=== PATIENT | female | born 1940 | race Caucasian/White ===

== ENCOUNTER 2019-05-17 07:59 | Day surgery (SDC) | payer OTHER | END 2019-05-17 10:35 | disposition home or self-care (01) | LOC: FASU-ENDO 07:59 ==

== ENCOUNTER 2019-07-06 12:24 | Inpatient (IN) | payer OTHER ==
--- NOTE | 2019-06-14 12:06 | HP ---
DATE OF ADMISSION: 07/07/2019 DATE OF SURGERY: 07/07/2019 BRIEF HISTORY: This is a 79-year-old female who had her first colonoscopy by Dr. Hurst on May 20, 2019. At that time, she had 3 discrete findings: A 3-cm broad based stone polyp at the level of the ileocecal valve (almost directly across from the ileocecal valve) that could not be removed endoscopically, and biopsies were taken. Pathology of this finding is polypoid mucosa vascular congestion, no acute findings of carcinoma or adenoma. She had another finding in the distal right colon that was completely removed and that was consistent with tubular adenoma. She had a 3rd polyp in the distal transverse colon, and underwent a complete removal as well by polypectomy, and that site was tattooed at the time of colonoscopy. Again, that pathology is consistent with tubular adenoma, no carcinoma identified. Patient has no complaints of abdominal pain, nausea, or vomiting. No history of weight loss. She does have a family history of cancer (her father at age 68). PAST MEDICAL HISTORY: She has no coronary artery disease, hypertension, or diabetes. PAST SURGICAL HISTORY: None. Patient has had a section in the past. MEDICATION: Atenolol, simvastatin. ALLERGIES: None. SOCIAL HISTORY: The patient does not smoke nor does she drink. No history of drug use. PHYSICAL EXAMINATION: Abdomen: The abdomen is soft, nontender, nondistended. She has a lower midline scar from the umbilicus down that is reasonably healed. The abdomen is not extremely obese, but the patient is obese. IMPRESSION/PLAN: Colonic tumor: This is a 79-year-old female with a growth at the level of the ileocecal valve consistent with being a polyp. It is broad based and unable to be removed endoscopically. Patient is here today for a right colectomy for surgical removal of this endoscopic finding. Incidentally, she had 2 polyps removed, 1 in the distal right colon and 1 in the distal transverse colon that are both consistent with tubular adenomas, no carcinoma. The distal transverse colon polyp was tattooed. The patient, her daughter and myself had a long conversation regarding the pros and cons of various surgical approaches such as laparoscopic versus open, and given her previous surgical history and her body habitus, I think she is best served in an open fashion. Patient will be scheduled for an open right colectomy. The indications, alternatives and complications of the procedure discussed at length, and questions have been answered. Will plan to obtain written consent for the procedure on the day of surgery. Francia VALVERDE [id number] cc: cc: Panchito Hurst M.D.
[2019-07-06] MEDS ORDERED: PEG/ELECTROLYTES (NULYTELY) 4,000 ML BOTTLE PO ONE (13:30)
[2019-07-06 14:09] VITALS: BMI 37.5
[2019-07-06] MEDS ORDERED: ERTAPENEM SODIUM 1 GM in SODIUM CHLORIDE 50 ML IVPB ONE (17:00)
[2019-07-06] MEDS: ATENOLOL 50 MG TABLET (FP) PO SCH (21:41)
[2019-07-07] MEDS ORDERED: MIDAZOLAM HCL 2 MG/2 ML SINGLE DOSE VIAL ONE (10:10)
[2019-07-07] MEDS ORDERED: DEXAMETHASONE SOD PHOSPHATE/PF 10 MG/ML SDV ONE (10:10)
[2019-07-07] MEDS ORDERED: ROPIVACAINE HCL 0.5% 30ML VIAL ONE (10:10)
[2019-07-07] MEDS: LACTATED RINGERS SOLUTION 1,000 ML IV SCH ×3 (10:48→19:17)
[2019-07-07] MEDS ORDERED: PROPOFOL 20 ML ONE ×2 (11:59→12:29)
[2019-07-07] MEDS ORDERED: ONDANSETRON 4 MG/2 ML VIAL ONE ×3 (11:59→14:19)
[2019-07-07] MEDS ORDERED: ROCURONIUM BROMIDE 50 MG/5 ML SYRINGE ONE (11:59)
[2019-07-07] MEDS ORDERED: DEXAMETHASONE SOD PHOSPHATE 4 MG/1 ML VIAL ONE ×2 (11:59→12:25)
[2019-07-07] MEDS ORDERED: fentaNYL CITRATE 250 MCG/5 ML VIAL ONE (11:59)
[2019-07-07] MEDS ORDERED: LIDOCAINE HCL 2% JELLY (5 ML/TUBE) ONE (11:59)
[2019-07-07] MEDS ORDERED: GLYCOPYRROLATE 0.2 MG/1 ML VIAL ONE (13:31)
[2019-07-07] MEDS ORDERED: NEOSTIGMINE METHYLSULFATE 0.5 MG/ML - 10 ML MDV ONE (13:32)
[2019-07-07] MEDS ORDERED: ACETAMINOPHEN 325 MG TABLET (FP) PO PRN (13:48)
[2019-07-07] MEDS ORDERED: oxyCODONE HCL 5 MG TABLET PO PRN (13:48)
[2019-07-07] MEDS ORDERED: ONDANSETRON 4 MG/2 ML VIAL IVPUSH PRN (13:48)
--- NOTE | 2019-07-07 19:53 | OP ---
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 PROCEDURE: Extended right colectomy, omental patch, peritoneal lavage. SURGEON: Tanner Mccollum MD SALVAGE MACHINE OPERATOR: Isai Tilley DO ANESTHESIA: Misael Bucio MD (general). ESTIMATED BLOOD LOSS: Minimal. SPECIMEN: Right colon. INDICATIONS FOR PROCEDURE: This is a 79-year-old female who had a colonoscopy by Dr. Hurst in May 2019. She was noted to have 3 discreet findings at that time, a broad-based tumor at the ileocecal valve which could not be completely removed, a polyp in the ascending colon, and another 1 in the mid transverse colon. The third polyp was tattooed. The other 2 polyps were completely removed. She is here today for a right colectomy. Patient identified and appropriately positioned on the operating room table, after placement of general anesthesia, the abdomen prepped and draped in usual sterile fashion with ChloraPrep. A midline incision was made, deepened through the subcutaneous tissue. This was extended into a previous operative scar. The fascia of the midline divided sharply. The peritoneum incised. Under direct vision, the abdomen entered. There were adhesions of omentum and small bowel to the anterior abdominal wall from her previous surgery. These adhesions were taken down with blunt dissection as needed. The right colon identified. There was also the tattooed area in the transverse colon identified as well. The actual colectomy was designed for the finding in the right colon. However, the blue spot was in the proximal and mid transverse colon, and therefore, an extended right hemicolectomy would encompass this. Therefore, I performed an extended right hemicolectomy. The attachment of the right colon to the gutter was sharply divided with the cautery. The right colon mobilized into the operative field. The hepatic flexure was taken down with LigaSure device. Four wells placed prior to complete division. The gastrocolic ligament was then divided in a fusion plane done with the cautery, and the mesentery of the transverse colon identified. The proximal and distal lines of resection were subsequently then chosen. The proximal line of resection was chosen 6 inches from the ileocecal valve, and the distal line of resection was chosen approximately 3 inches beyond the spot. The ileum was anastomosed to the remainder of the transverse colon in a functional [id number]-[id number] fashion with a CANDICE 80, 3.8-mm stapler. The enterotomy closed with a TA 60, 3.5-mm stapler. The mesentery was then subsequently taken with LigaSure device. Four wells placed prior to complete division on all named vessels. The middle colic was taken near the duodenum and the right colic was taken in similar fashion and the ileocolic pedicle taken near the base. This mass was subsequently handed off. The surgeon and physiotherapist's assistant changed gloves at this point. Prior to dividing the colon and making the enterotomies for the anastomosis, the area was draped off with green towels, followed by laparotomy pads. Once the specimen was removed and surgeon and physiotherapist's assistant changed gloves and gowns, the toweled-off drapes were removed as well, and all the clamps associated with them were counted and noted to be correct. The anastomosis checked, grossly intact. The bowel proximal and distal to the anastomosis was pink and viable. No evidence of gross breaks. The suture line was complete. The anastomosis allowed easily 2 fingerbreadths. The mesenteric defect was subsequently closed with a running 3-0 chromic suture. The gutter was then subsequently irrigated with saline. The operative field examined and noted to be hemostatic. The liver palpated once again and no obvious findings. The stomach at this point was mildly distended; therefore, an OG tube was placed, and subsequently removed, to decompress the stomach. The bowel returned to its anatomic position. A portion of the omentum was mobilized, anchored over the transverse TA staple line with interrupted 3-0 chromic sutures as an omental patch. The abdomen irrigated once again. The irrigate retrieved. The operative field hemostatic. The midline incision reapproximated with a running number 1 PDS suture. The subcutaneous space irrigated, and the skin closed with weston, followed by Dermabond. At the conclusion of this case, sponge and instrument counts were correct. ATTESTATION: A brief operative note handwritten on the preprinted form and [facility] queried prior to giving any narcotics. Francia VALVERDE [id number] cc: Panchito Hurst MD Stere MD Ryann
[2019-07-08] MEDS: morphine SULFATE 4 MG/ML VIAL IVPB PRN ×2 (06:16→20:17)
[2019-07-08] MEDS: ATENOLOL 50 MG TABLET (FP) PO SCH ×2 (06:16→22:18)
[2019-07-08 07:40] LABS: HEMATOCRIT 39.6 % (32.4-45.2); HEMOGLOBIN 13.4 GM/dl (10.7-15.3); MCH 29.8 pg (25.7-33.7); MCHC 33.7 g/dl (32.0-36.0); MEAN CELL VOLUME 88.4 fl (80-96); MEAN PLT VOLUME 8.3 fl (7.5-11.1); PLATELET COUNT 312 K/MM3 (134-434); RBC 4.48 M/mm3 (3.60-5.2); RDW 13.1 % (11.6-15.6); WHITE BLOOD COUNT 10.6 K/mm3 (4.0-10.8)
[2019-07-08 07:57] LABS: CALCIUM 8.4 mg/dl (8.5-10); CREATININE 0.6 mg/dl (0.55-1.3); MAGNESIUM 1.7 mg/dL (1.8-2.4); PHOSPHOROUS 4.2 mg/dl (2.5-4.9); POTASSIUM 4.2 mmol/L (3.5-5.1)
[2019-07-08] MEDS ORDERED: MAGNESIUM SULFATE IN WATER 2 GM/50 ML IVPB IVPB ONE (09:00)
[2019-07-08] MEDS: ENOXAPARIN NA (PORCINE) 40 MG/0.4 ML DISP.SYRIN SQ SCH (09:11)
[2019-07-08] MEDS ORDERED: ERTAPENEM SODIUM 1 GM in SODIUM CHLORIDE 50 ML IVPB ONE (10:00)
[2019-07-08] MEDS ORDERED: ERTAPENEM SODIUM 1 GM/50 ML PRE-DOCKED IVPB SCH (10:00)
--- NOTE | 2019-07-08 10:26 | PN ---
Progress Note (short form) - Note Progress Note: surgery pt seen and examined. feels well. not oob much. 500 on spirometer. comfortable. voiding afebrile abd- soft,mild distension, incision clean, nt Plan- 1) Pod#1- npo, ivf, 2) prophylaxis- finish invanz, cont protonix, lovenox, spirometer, oob 3) colon neoplasm- follow path. 4) htn- on atenolol 5) depression- restart celexa 6) hyperlipidemia- restart antilipid 7) limited ambulation- pt eval 8) morphine, tyelonol, oxycodone, rectus sheath block 9) hypomagnesemia- will replace
[2019-07-08] MEDS: PANTOPRAZOLE SODIUM 40 MG VIAL IVPUSH SCH (10:30)
[2019-07-08] MEDS ORDERED: ERTAPENEM SODIUM 1 GM VIAL ONE (13:17)
--- NOTE | 2019-07-08 13:36 | PN ---
Progress Note (short form) - Note Progress Note: 79F POD1 s/p right colectomy under GA-ETT doing well Pt states that pain is well controlled Pt denies any anesthetic complications. Continue current regimen for post operative pain control.
[2019-07-08] MEDS: LACTATED RINGERS SOLUTION 1,000 ML IV SCH (15:12)
[2019-07-08] MEDS ORDERED: PATIENT'S OWN MEDICATION (NON-FORMULARY) (Simvastatin 20 MG) PO SCH (22:00)
[2019-07-08] MEDS: ATORVASTATIN CA 10 MG TABLET (FP) PO SCH (22:18)
[2019-07-08] MEDS: ASPIRIN COATED 81 MG TABLET.EC PO SCH (22:18)
[2019-07-08] MEDS: CITALOPRAM HYDROBROMIDE 20 MG TABLET (FP) PO SCH (22:18)
[2019-07-09 08:15] LABS: HEMATOCRIT 41.2 % (32.4-45.2); HEMOGLOBIN 14.1 GM/dl (10.7-15.3); MCHC 34.1 g/dl (32.0-36.0); MEAN PLT VOLUME 8.3 fl (7.5-11.1); PLATELET COUNT 371 K/MM3 (134-434); RBC 4.68 M/mm3 (3.60-5.2); RDW 13.3 % (11.6-15.6); WHITE BLOOD COUNT 12.9 K/mm3 (4.0-10.8)
[2019-07-09 08:30] LABS: CALCIUM 8.4 mg/dl (8.5-10); CREATININE 0.6 mg/dl (0.55-1.3); MAGNESIUM 2.1 mg/dL (1.8-2.4); PHOSPHOROUS 3.2 mg/dl (2.5-4.9); POTASSIUM 4.4 mmol/L (3.5-5.1)
[2019-07-09] MEDS: ENOXAPARIN NA (PORCINE) 40 MG/0.4 ML DISP.SYRIN SQ SCH (10:10)
[2019-07-09] MEDS: PANTOPRAZOLE SODIUM 40 MG VIAL IVPUSH SCH (10:10)
--- NOTE | 2019-07-09 12:25 | PN ---
Progress Note (short form) - Note Progress Note: surgery pt seen and examined. feels well. walking more. bm this am. no flatus. 1000 on spirometer. comfortable. voiding. now productive cough. afebrile abd- soft,mild distension, incision clean, nt Laboratory Tests 07/08/19 07/08/19 07/09/19 07:15 07:15 07:06 WBC 10.6 12.9 H Hgb 13.4 Sodium Magnesium 1.7 L 07/09/19 07:06 WBC Hgb Sodium 134 L Magnesium Plan- 1) Pod#2- npo, ivf, 2) prophylaxis- cont protonix, lovenox, spirometer, oob 3) colon neoplasm- follow path. 4) htn- on atenolol 5) depression- celexa 6) hyperlipidemia- antilipid 7) limited ambulation- pt eval 8) morphine, tyelonol, oxycodone, rectus sheath block 9) hypomagnesemia- resolved 10) hyponatremia- ns
[2019-07-09] MEDS ORDERED: DEXTROSE 5%-NORMAL SALINE 1,000 ML IV SCH (12:30)
[2019-07-09] MEDS: ATENOLOL 50 MG TABLET (FP) PO SCH (22:09)
[2019-07-09] MEDS: ATORVASTATIN CA 10 MG TABLET (FP) PO SCH (22:09)
[2019-07-09] MEDS: ASPIRIN COATED 81 MG TABLET.EC PO SCH (22:09)
[2019-07-09] MEDS: CITALOPRAM HYDROBROMIDE 20 MG TABLET (FP) PO SCH (22:09)
[2019-07-10 08:21] LABS: BASO % 0.6 % (0-2.0); EOS % 1.6 % (0-4.5); HEMATOCRIT 36.1 % (32.4-45.2); LYMPH % 18.4 % (8-40); MCH 29.5 pg (25.7-33.7); MCHC 33.3 g/dl (32.0-36.0); MEAN CELL VOLUME 88.6 fl (80-96); MEAN PLT VOLUME 8.1 fl (7.5-11.1); NEUT % 72.4 % (42.8-82.8); PLATELET COUNT 305 K/MM3 (134-434); RBC 4.08 M/mm3 (3.60-5.2); RDW 12.9 % (11.6-15.6); WHITE BLOOD COUNT 6.9 K/mm3 (4.0-10.8)
[2019-07-10 08:32] LABS: CALCIUM 8.2 mg/dl (8.5-10); CREATININE 0.5 mg/dl (0.55-1.3); MAGNESIUM 1.9 mg/dL (1.8-2.4)
[2019-07-10] MEDS ORDERED: NAPH,MB-DB/K PH,MBDB POWDER PACKET PO SCH (09:30)
[2019-07-10] MEDS: PANTOPRAZOLE SODIUM 40 MG VIAL IVPUSH SCH (10:24)
[2019-07-10] MEDS: ENOXAPARIN NA (PORCINE) 40 MG/0.4 ML DISP.SYRIN SQ SCH (10:24)
[2019-07-10 14:03] VITALS: BP 157/72; PULSE 78; TEMP 97.8
--- NOTE | 2019-07-11 12:18 | DS ---
DATE OF ADMISSION: 07/06/2019 DATE OF DISCHARGE: 07/10/2019 DATE OF SURGERY: 07/07/2019 DIAGNOSIS ON ADMISSION: Colon tumor. BRIEF HISTORY: This is a patient admitted 1 day prior to surgical intervention for a formal bowel prep. She was then subsequently taken to the operating room. Her postoperative course was unremarkable. She was noted to be hypophosphatemic on postoperative day number 1 and subsequently her phosphorus was replaced and she was also hypomagnesemic and her magnesium was replaced as well. During her stay, her phosphorus had improved but on day of discharge, her phosphorus was slightly low and therefore she was given 30 mmol of phosphorus for replacement. I saw the patient today on the date of discharge. She has no complaints. She has moved her bowels twice. Her vital signs are stable. Her white count is within normal limits and she has been afebrile. She was placed on a full liquid diet in the morning and I spoke to the nurse in the afternoon, and if she did well with the diet, after lunch she would be discharged. She did well with her full liquid diet, no nausea, no vomiting, and therefore she was subsequently discharged. At the time of discharge, her incision is clean, dry and intact (this was seen this morning). She had very benign abdomen. Please refer to my note written that day. DISCHARGE MEDICATIONS: Same as admission medications. No new medications were given. Patient does not require narcotics at the time of discharge. I will see this patient back this coming Friday for a quick followup to make sure everything is going as planned. Patient understands very clearly that if there are any issues, she is to call my office, in which she will subsequently call the service which will get ahold of me to discuss any issues and I will be available. Patient stable at the time of discharge and will follow up as discussed. CHUN HAINES M.D. [id number]
--- NOTE | 2019-07-21 16:02 | PATH ---
Surgical Pathology Report Patient Name: OLEGARIO SANTACRUZ Med. Rec. #: [id number] /Age/Gender: 1940 (Age: 79) / F Account: [id number] Location: [facility] Taken: 07/07/2019 Received: 07/07/2019 Reported: 07/21/2019 Physicians: Tanner Mccollum Specimen(s) Received EXTENDED RIGHT HEMICOLECTOMY Clinical History Colonic tumor Final Diagnosis RIGHT COLON AND ILEUM, EXTENDED RIGHT HEMICOLECTOMY: ILEUM SHOWING INFLAMMATORY FIBROID POLYP (0.7 CM). COLON SHOWING TUBULAR ADENOMA. ADDITIONAL PRIOR BIOPSY SITE WITH TATTOO; NO RESIDUAL ADENOMATOUS POLYP IDENTIFIED. APPENDIX WITH NO PATHOLOGIC FINDINGS. SEVENTEEN BENIGN LYMPH NODES (0/17). Note: Prior right colon, transverse colon and ileocecal valve biopsies/polypectomy are noted ([id number]; 05/18/2019). Immunostains performed at [place], [place] ([id number]) show the following results: the lesional cells (polyp in ileum) are positive for vimentin, CD34 and SMA with rare CD117 positive cells, while desmin, CD31, S100 and DOG-1 are negative. These findings support the diagnosis. Preliminary findings discussed with on 07/15/19. Electronically Signed Shauna Pedraza M.D. Gross Description Received in formalin labeled "right extended hemicolectomy," is a 10 cm in length portion of terminal ileum with an attached 24 cm in length portion of cecum and right colon. The specimen displays 2 open mucosal margins and abundant attached pericolonic adipose tissue. The serosa is lyon-suarez and smooth. There is a 7 cm in length unremarkable vermiform appendix attached at the cecum. The mucosa displays a 0.7 x 0.6 x 0.3 cm lyon, polypoid lesion in the ileum, 2 cm proximal to the ileocecal valve, at 7 cm from the terminal ileal margin. There is a focal possible thickening of the ileocecal valve. Additionally, the right colon displays a 0.4 cm in greatest dimension mucosal polyp 6.5 cm distal to the ileocecal valve. There is a tattoo identified at 7 cm proximal to the distal colonic margin. The tattoo displays a central, depressed focus, consistent with a previous biopsy site. The remaining mucosa is lyon with normal folds. Heart Surgeon sections are submitted in 28 cassettes as follows: 1-terminal ileal margin of resection; 2-distal colonic margin of resection; 3-appendix; 4-ileal polyp; 6-9-xvmuppvnrw sections, ileocecal valve; 7-uninvolved ileum; 8-right colon mucosal polyp; 5-50-ppropcah biopsy site with tattoo; 11-uninvolved distal colon; 12-13-one bisected possible lymph node each; 15-79-lrnhtnminb sections from area of ileal polyp; 00-96-emabmhjqnu sections of ileocecal valve; 19-25-one bisected lymph node each; 66-30-kgvmluxc whole lymph nodes each. 07/08/2019 saudi07/08/2019
== END 2019-07-10 14:20 | disposition home or self-care (01) | DRG 330 ==
LOC: FM/S 12:24 → EDSTATUS 07-07 08:00
PROVIDERS: ADMIT Surgery; ATTEND Surgery
PROC: 0DQU0ZZ Repair Omentum, Open Approach (ICD-10-PCS; 2019-07-07)
PROC: 3E1M38Z Irrigation of Peritoneal Cavity using Irrigating Substance, Percutaneous Approach (ICD-10-PCS; 2019-07-07)
PROC: 0DTF0ZZ Resection of Right Large Intestine, Open Approach (ICD-10-PCS; principal; 2019-07-07 12:36)
DX: D12.0 Benign neoplasm of cecum (principal); E87.1 Hypo-osmolality and hyponatremia; E83.42 Hypomagnesemia; I10 Essential (primary) hypertension; E78.5 Hyperlipidemia, unspecified; F32.9 Major depressive disorder, single episode, unspecified; Z80.0 Family history of malignant neoplasm of digestive organs; E66.9 Obesity, unspecified; Z68.37 Body mass index [BMI] 37.0-37.9, adult; K66.0 Peritoneal adhesions (postprocedural) (postinfection); D12.6 Benign neoplasm of colon, unspecified
CPT/HCPCS: 36415; 80048; 83735; 84100; 85025; 85027; 86850; 86900; 86901; 88309-TC; 94760; 97116-GP; 97161-GP

== ENCOUNTER 2019-07-14 17:09 | Inpatient (IN) | payer OTHER ==
[2019-07-14 17:20] VITALS: BMI 37.5
[2019-07-14] MEDS ORDERED: ONDANSETRON 4 MG/2 ML VIAL IVPUSH ONE (17:39)
[2019-07-14] MEDS ORDERED: SODIUM CHLORIDE 1,000 ML IV STA (17:39)
[2019-07-14] MEDS ORDERED: ACETAMINOPHEN 1000 MG/100 ML VIAL (NON FORMULARY) IVPB ONE (17:39)
[2019-07-14] MEDS ORDERED: FAMOTIDINE 20 MG/50 ML IVPB 20 MG/50 ML MG IVPB ONE ×2 (17:39→17:56)
--- NOTE | 2019-07-14 17:46 | PDOC ---
Attending Attestation - Resident Resident Name: Kim Cullen - ED Attending Attestation I have performed the following: I have examined & evaluated the patient, The case was reviewed & discussed with the resident, I agree w/resident's findings & plan, Exceptions are as noted - HPI HPI: 07/14/19 17:57 Abdominal pain, nausea, vomiting since last night. Partial colectomy one week ago for a large polyps that could not be removed through colonoscopy. Crampy mid abdominal pain was more severe yesterday, still present but less intense. Vomiting all oral intake. Hypertension, elevated cholesterol, controlled with medication. Also takes a baby aspirin. No diabetes, known heart disease, or other GI diseases. - Physicial Exam PE: 07/14/19 17:58 Alert and oriented well-developed well-nourished [id number] abdominal pain but cheerful and cooperative Afebrile, vital signs normal No pallor or icterus. ENT clear Neck supple without bruit mass or nodes Lungs clear CV regular without murmur rub or gallop Abdomen mildly distended. Bowel sounds decreased but normal in character. Tenderness to palpation in all 4 quadrants, no guarding or rebound. Skin clear, no rash, adequate turgor and wet mucous membranes Extremities no CCE - Medical Decision Making 07/14/19 18:00 Assessment: Patient likely has a postoperative bowel obstruction. Possible ileus. Does not appear to be toxic Plan: Rehydration, antiemetic, analgesic, repeat CT and further surgical evaluation
[2019-07-14] MEDS ORDERED: ONDANSETRON 4 MG/2 ML VIAL ONE (17:48)
[2019-07-14] MEDS ORDERED: ACETAMINOPHEN INJECTION 100 ML IVPB ONE (17:56)
[2019-07-14 18:14] LABS: HEMATOCRIT 38.1 % (32.4-45.2); HEMOGLOBIN 12.4 GM/dl (10.7-15.3); MCHC 32.7 g/dl (32.0-36.0); MEAN CELL VOLUME 88.7 fl (80-96); MEAN PLT VOLUME 8.3 fl (7.5-11.1); PLATELET COUNT 349 K/MM3 (134-434); RBC 4.29 M/mm3 (3.60-5.2); RDW 13.3 % (11.6-15.6); WHITE BLOOD COUNT 4.4 K/mm3 (4.0-10.8)
[2019-07-14 18:22] LABS: ALBUMIN 3.4 g/dl (3.4-5.0); BILIRUBIN,TOTAL 1.6 mg/dl (0.2-1); CALCIUM 8.6 mg/dl (8.5-10); CREATININE 0.5 mg/dl (0.55-1.3); MAGNESIUM 1.7 mg/dL (1.8-2.4); POTASSIUM 3.8 mmol/L (3.5-5.1); TOT PROT 6.5 g/dl (6.4-8.2)
[2019-07-14] MEDS ORDERED: LIDOCAINE HCL 2% JELLY (5 ML/TUBE) ONE (18:25)
[2019-07-14] MEDS ORDERED: LIDOCAINE HCL 2% JELLY (30 ML/TUBE) TP ONE (18:25)
--- NOTE | 2019-07-14 19:30 | PDOC ---
History of Present Illness - General Chief Complaint: Pain, Acute Stated Complaint: ABD PAIN Time Seen by Provider: 07/14/19 17:27 History Source: Patient Exam Limitations: No Limitations - History of Present Illness Initial Comments: Pt is a 79 yo F, with PMH of HTN, HLD, depression, and s/p R colectomy 2/2 large polyps concerning for malignancy, who is presenting with complaints of worsening R-sided abdominal pain and inability to tolerate PO intake 2/2 profuse nausea and vomiting. Pt states the abdominal pain is sharp and persistent, with no alleviating factors. Pt has been having BMs since discharged after the operation. Pt denies any fevers/chills, headache, vision changes, syncope, chest pain, palpitations, SOB, urinary symptoms, diarrhea/ constipation, or leg swelling. Allergies: NKDA Surgeon: Dr. Tanner Mccollum/Treva luna PCP: Ryann Social: Pt denies any cigarette, alcohol, or drug use. Pt denies any recent travel or sick contacts. Surgical: as above Family: no relevant history. 07/14/19 19:28 07/14/19 20:06 Past History - Travel Traveled outside of the country in the last 30 days: No Close contact w/someone who was outside of country & ill: No - Past Medical History Allergies/Adverse Reactions: Allergies Allergy/AdvReac Type Severity Reaction Status Date / Time No Known Allergies Allergy Verified 07/14/19 17:10 Home Medications: Ambulatory Orders Aspirin [Aspirin EC] 81 mg PO HS 05/14/19 Atenolol [Tenormin -] 100 mg PO HS 05/14/19 Citalopram Hydrobromide [Citalopram HBr] 20 mg PO HS 05/14/19 Simvastatin [Zocor -] 20 mg PO HS 05/14/19 Anemia: No Asthma: No Cancer: No Cardiac Disorders: No CVA: No COPD: No CHF: No Dementia: No Diabetes: No GI Disorders: No Disorders: No HTN: Yes Hypercholesterolemia: Yes Liver Disease: No Seizures: No Thyroid Disease: No - Surgical History Abdominal Surgery: No Appendectomy: No Cardiac Surgery: No Cholecystectomy: No Lung Surgery: No Neurologic Surgery: No Orthopedic Surgery: No - Suicide/Smoking/Psychosocial Hx Smoking History: Never smoked Have you smoked in the past 12 months: No If you are a former smoker, when did you quit?: 1989 Hx Alcohol Use: No Drug/Substance Use Hx: No Substance Use Type: None Hx Substance Use Treatment: No Abd/GI Specific PMHX - Complaint Specific PMHX Colitis: No Diverticulitis: No Gall Bladder Disease: No GERD: No Hepatitis: No Irritable Bowel Synd (IBS): No Pancreatitis: No GI Ulcer Disease: No Other History: R colectomy 2/2 polyps Review of Systems - Review of Systems Able to Perform ROS?: Yes Is the patient limited Occitan proficient: No Constitutional: Yes: Weight Stable. No: Chills, Diaphoresis, Fever, Loss of Appetite, Weakness HEENTM: No: Blurred Vision, Double Vision, Nose Congestion, Throat Pain, Throat Swelling, Difficulty Swallowing Respiratory: No: Cough, Orthopnea, Shortness of Breath Cardiac (ROS): No: Chest Pain, Edema, Irregular Heart Rate, Lightheadedness, Palpitations, Syncope, Chest Tightness ABD/GI: Yes: See HPI, Nausea, Poor Appetite, Poor Fluid Intake, Vomiting, Abdominal cramping. No: Abdominal Distended, Blood Streaked Bowels, Constipated , Diarrhea, Difficulty Swallowing, Rectal Bleeding, Tarry Stools : No: Burning, Dysuria, Frequency, Pain, Urgency Musculoskeletal: No: Back Pain, Joint Pain, Muscle Pain, Muscle Weakness Integumentary: No: Rash Neurological: No: Headache, Paresthesia, Weakness, Unsteady Gait, Dizziness Psychiatric: No: Sleep Pattern Change, Change in Appetite Endocrine: No: Increased Urine, Change in Weight Hematologic/Lymphatic: No: Anemia, Blood Clots, Easy Bleeding, Easy Bruising All Other Systems: Reviewed and Negative *Physical Exam - Vital Signs Last Vital Signs Temp Pulse Resp BP Pulse Ox 97.9 F 73 19 157/70 98 07/14/19 17:10 07/14/19 17:10 07/14/19 17:10 07/14/19 17:10 07/14/19 17:10 - Physical Exam Comments: Vitals stable, pt afebrile. Pt uncomfortable, with NBNB projectile vomiting on exam. Obese body habitus. Pt alert and oriented x3. casino accountant generally intact, muscular strength and sensation intact. No midline spinal tenderness, step-offs, or crepitus. Head normocephalic, atraumatic. Eyes PERRLA, EOMI. Oropharynx without erythema or exudates, no LAD b/l. No nasal congestion, hearing intact. Clear heart sounds, S1/S2, no JVD, b/l pedal edema, or heart murmur. Clear lung sounds, no respiratory distress, wheezes, crackles, or accessory muscle use. Large midline abdominal well-healing incision with weston. No erythema or drainage noted. R sided abdominal TTP, worst in RUQ. Abdomen soft, non-distended , and with normoactive bowel sounds. Skin without jaundice or rash. 07/14/19 20:11 ED Treatment Course - LABORATORY CBC & Chemistry Diagram: 07/14/19 17:53 07/14/19 17:53 - ADDITIONAL ORDERS Additional order review: Laboratory Results 07/14/19 17:53 Sodium 136 Potassium 3.8 Chloride 101 Carbon Dioxide 27 Anion Gap 8 BUN 10.0 Creatinine 0.5 L Est GFR (CKD-EPI)AfAm 108.20 Est GFR (CKD-EPI)NonAf 93.36 Random Glucose 139 H Calcium 8.6 Magnesium 1.7 L Total Bilirubin 1.6 H AST 65 H ALT 40 Alkaline Phosphatase 61 Total Protein 6.5 Albumin 3.4 07/14/19 17:53 RBC 4.29 MCV 88.7 MCHC 32.7 RDW 13.3 MPV 8.3 Neutrophils % No Result Required. Lymphocytes % No Result Required. - RADIOLOGY Radiology Studies Ordered: Category Date Time Status ABDOMEN & PELVIS CT WITH CONTR [CT] Stat CT Scan 07/14/19 18:25 Ordered CHEST X-RAY PORTABLE* [RAD] Stat Radiology 07/14/19 18:52 Taken - Medications Given in the ED: ED Medications Discontinued Medications Generic Name Dose Route Start Last Admin Trade Name Freq PRN Reason Stop Dose Admin Acetaminophen 1,000 mg 07/14/19 17:39 07/14/19 18:05 Ofirmev Injection - IVPB 07/14/19 17:40 1,000 mg ONCE ONE Administration Famotidine/Sodium Chloride 20 mg in 50 mls @ 100 mls/hr 07/14/19 17:39 18:00 Pepcid 20 Mg Premixed Ivpb - IVPB 07/14/19 18:08 100 mls/hr ONCE ONE Administration Sodium Chloride 1,000 mls @ 1,000 mls/hr 07/14/19 17:39 07/14/19 18:00 Normal Saline - IV 07/14/19 18:38 1,000 mls/hr ASDIR STA Administration Lidocaine HCl 1 applic 07/14/19 18:25 07/14/19 19:10 Xylocaine 2% Jelly TP 07/14/19 18:26 1 applic ONCE ONE Administration Ondansetron HCl 4 mg 07/14/19 17:39 07/14/19 17:54 Zofran Injection IVPUSH 07/14/19 17:40 4 mg ONCE ONE Administration Medical Decision Making - Medical Decision Making Pt was seen at bedside, also will be seen by attending Dr. Diaz. Pt presenting with complaints of worsening abdominal pain s/p R colectomy. Pt with inability to tolerate PO intake today, concern for obstruction vs ileus vs infection/abscess. No signs of wound dehiscence or drainage from surgery site. Placed NG tube. Provided 4 mg IV zofran, 20 mg IV pepcid, 1 g ofirmev, and started IV NS bolus and maintenance fluids. Spoke with Dr. Tilley, who suggested PO and IV contrast after placing NG tube. Will continue to reassess pt and monitor for symptomatic improvement. 07/14/19 20:17 Chest x-ray shows NG tube in place. Drained ~200 mL fluid. Pt provided ~200 PO contrast and could not tolerate any more by PO Will do IV contrast with CT abd/pelvis ~9:30 pm. Pt with no further episodes of n/v in ED and states she feels much better CBC WNL AST and total bili mildly elevated -- no prior for comparison, pending CT scan 07/14/19 20:[address] abd/pelvis Pt endorsed to Dr. Sutton 07/14/19 21:41 *DC/Admit/Observation/Transfer Diagnosis at time of Disposition: S/P colectomy Abdominal pain Qualifiers: Abdominal location: generalized Qualified Code(s): R10.84 - Generalized abdominal pain - Discharge Dispostion Condition at time of disposition: Stable - Referrals Referrals: Tegan Garzon MD [Primary Care Provider] - - Patient Instructions - Post Discharge Activity
[2019-07-14] MEDS: SODIUM CHLORIDE 1,000 ML IV SCH (19:35)
[2019-07-14 20:55] LABS: PLATELET ESTIMATE SLT INCREASE
--- NOTE | 2019-07-14 21:45 | PDOC ---
*Physical Exam - Vital Signs Last Vital Signs Temp Pulse Resp BP Pulse Ox 97.9 F 83 18 132/62 96 07/14/19 17:10 07/14/19 19:30 07/14/19 19:30 07/14/19 19:30 07/14/19 19:30 ED Treatment Course - LABORATORY CBC & Chemistry Diagram: 07/14/19 17:53 07/14/19 17:53 - ADDITIONAL ORDERS Additional order review: Laboratory Results 07/14/19 17:53 Sodium 136 Potassium 3.8 Chloride 101 Carbon Dioxide 27 Anion Gap 8 BUN 10.0 Creatinine 0.5 L Est GFR (CKD-EPI)AfAm 108.20 Est GFR (CKD-EPI)NonAf 93.36 Random Glucose 139 H Calcium 8.6 Magnesium 1.7 L Total Bilirubin 1.6 H AST 65 H ALT 40 Alkaline Phosphatase 61 Total Protein 6.5 Albumin 3.4 07/14/19 17:53 RBC 4.29 MCV 88.7 MCHC 32.7 RDW 13.3 MPV 8.3 Neutrophils % No Result Required. Lymphocytes % No Result Required. - Medications Given in the ED: ED Medications Discontinued Medications Generic Name Dose Route Start Last Admin Trade Name Freq PRN Reason Stop Dose Admin Acetaminophen 1,000 mg 07/14/19 17:39 07/14/19 18:05 Ofirmev Injection - IVPB 07/14/19 17:40 1,000 mg ONCE ONE Administration Famotidine/Sodium Chloride 20 mg in 50 mls @ 100 mls/hr 07/14/19 17:39 18:00 Pepcid 20 Mg Premixed Ivpb - IVPB 07/14/19 18:08 100 mls/hr ONCE ONE Administration Sodium Chloride 1,000 mls @ 1,000 mls/hr 07/14/19 17:39 07/14/19 18:00 Normal Saline - IV 07/14/19 18:38 1,000 mls/hr ASDIR STA Administration Lidocaine HCl 1 applic 07/14/19 18:25 07/14/19 19:10 Xylocaine 2% Jelly TP 07/14/19 18:26 1 applic ONCE ONE Administration Ondansetron HCl 4 mg 07/14/19 17:39 07/14/19 17:54 Zofran Injection IVPUSH 07/14/19 17:40 4 mg ONCE ONE Administration Progress Note - Progress Note Progress Note: Care of this patient was transferred to me from the medical assistant and Dr. Marly Tellez.. 79-year-old female who is status post partial colectomy recently. Patient now comes in unable to tolerate by mouth's with nausea and vomiting. Patient's surgeon was contacted and recommends that we get a CAT scan with by mouth and IV contrast. Patient is waiting CAT scan. CAT scan was read as no definite obstruction most likely ileus. There is also some collections of fluid secondary to the fact the patient is a week postop. Dr. Durant's and called and discussed results with him and hospitalist will admit patient to an inpatient bed and he will follow. *DC/Admit/Observation/Transfer Diagnosis at time of Disposition: S/P colectomy, Ileus Abdominal pain Qualifiers: Abdominal location: generalized Qualified Code(s): R10.84 - Generalized abdominal pain - Discharge Dispostion Condition at time of disposition: Stable Decision to Admit order: Yes - Referrals Referrals: Tegan Garzon MD [Primary Care Provider] - - Patient Instructions - Post Discharge Activity
--- NOTE | 2019-07-14 22:18 | PN ---
Progress Note (short form) - Note Progress Note: surgery pt returned to ER for abd pain and vomiting. Ct with oral contrast reviewed. official report pending. no obvious transition seen but expected swelling at anastamosis noted. air passes through anastamosis with air distal. contrast at the anastamosis. expected fluid in abdomen on pod#7. no free air. labs unremarkable. Plan- clinically ileus. agree with admission. agree with ngt. likely overate yesterday with partially obstructed the anastamosis. Clinically no leak or mechnical sbo.
[2019-07-14] MEDS ORDERED: morphine CARPU-JECT 2 MG/1 ML DISP.SYRIN IVPUSH ONE (22:29)
[2019-07-14] MEDS ORDERED: morphine SULFATE 4 MG/ML VIAL ONE (22:45)
[2019-07-14] MEDS ORDERED: MAGNESIUM SULF 50% (8.12 MEQ/2 ML-1 GM VIAL) IVPB ONE (23:14)
[2019-07-14] MEDS ORDERED: PIPERACILLIN/TAZOB 3.375 GM 3.375 GM in DEXTROSE 5%-WATER - 50 ML IVPB SCH (23:45)
--- NOTE | 2019-07-14 23:50 | HOSP ---
Subjective - Review of Symptoms Events since last encounter: Called Dr. Tilley and discussed radiology finding of small pocket of free air. He said surgery was one week ago. No further instructions. Physical Examination Vital Signs: Vital Signs Temperature 97.9 F 07/14/19 17:10 Pulse Rate 83 07/14/19 19:30 Respiratory Rate 18 07/14/19 19:30 Blood Pressure 132/62 07/14/19 19:30 O2 Sat by Pulse Oximetry (%) 96 07/14/19 19:30 Labs: CBC, BMP 07/14/19 17:53 07/14/19 17:53
[2019-07-14] MEDS ORDERED: MAGNESIUM SULF 50% (8.12 MEQ/2 ML-1 GM VIAL) ONE (23:55)
[2019-07-15] MEDS ORDERED: PIPERACILLIN/TAZOBACTAM 3.375 GM VIAL IVPB ONE (01:26)
[2019-07-15] MEDS ORDERED: DEXTROSE 5%-WATER - 50 ML IVPB ONE (01:26)
[2019-07-15] MEDS: SODIUM CHLORIDE 1,000 ML IV SCH ×2 (01:48→19:35)
[2019-07-15] MEDS ORDERED: PIPERACILLIN/TAZOB 3.375 GM 3.375 GM in DEXTROSE 5%-WATER - 50 ML IVPB SCH (02:00)
[2019-07-15] MEDS: ACETAMINOPHEN 1000 MG/100 ML VIAL (NON FORMULARY) IVPB PRN ×2 (05:45→20:47)
--- NOTE | 2019-07-15 07:38 | HP ---
CHIEF COMPLAINT: Abdominal pain and vomiting PCP: Dr. Tegan Garzon HISTORY OF PRESENT ILLNESS: 79 year-old female with a PMH significant for HTN, HLD and depression. 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 Post-op course was uneventful, discharged on 07/10/19. Patient presented in the ED (POD # 7) for evaluation of abdominal pain and vomiting x 24 hours after eating a large meal. ER course was notable for: (1) NGT placed Recent Travel: No PAST MEDICAL HISTORY: Hypertension Hyperlipidemia Depression PAST SURGICAL HISTORY: x 1 Right colectomy 07/07/19 ([place]) Social History: Smoking: former Alcohol: no Drugs: no Family History: mother and father both , both with h/o CAD and HTN Allergies No Known Allergies Allergy (Verified 07/14/19 17:10) HOME MEDICATIONS: Home Medications Medication Instructions Recorded Aspirin [Aspirin EC] 81 mg PO HS 05/14/19 Atenolol [Tenormin -] 100 mg PO HS 05/14/19 Citalopram Hydrobromide 20 mg PO HS 05/14/19 [Citalopram HBr] Simvastatin [Zocor -] 20 mg PO HS 05/14/19 REVIEW OF SYSTEMS CONSTITUTIONAL: Absent: fever, chills, diaphoresis, generalized weakness, malaise, loss of appetite, weight change HEENT: Absent: rhinorrhea, nasal congestion, throat pain, throat swelling, difficulty swallowing, mouth swelling, ear pain, eye pain, visual changes CARDIOVASCULAR: Absent: chest pain, syncope, palpitations, irregular heart rate, lightheadedness , peripheral edema RESPIRATORY: Absent: cough, shortness of breath, dyspnea with exertion, orthopnea, wheezing, stridor, hemoptysis GASTROINTESTINAL: +abdominal pain, vomiting Absent: abdominal distension, nausea, diarrhea, constipation, melena, hematochezia GENITOURINARY: Absent: dysuria, frequency, urgency, hesitancy, hematuria, flank pain, genital pain MUSCULOSKELETAL: Absent: myalgia, arthralgia, joint swelling, back pain, neck pain SKIN: Absent: rash, itching, pallor HEMATOLOGIC/IMMUNOLOGIC: Absent: easy bleeding, easy bruising, lymphadenopathy, frequent infections ENDOCRINE: Absent: unexplained weight gain, unexplained weight loss, heat intolerance, cold intolerance NEUROLOGIC: Absent: headache, focal weakness or paresthesias, dizziness, unsteady gait, seizure, mental status changes, bladder or bowel incontinence PSYCHIATRIC: Absent: anxiety, depression, suicidal or homicidal ideation, hallucinations. PHYSICAL EXAMINATION Vital Signs - 24 hr 07/14/19 07/14/19 07/15/19 17:10 19:30 00:46 Temperature 97.9 F 98.9 F Pulse Rate 73 Pulse Rate [ 83 88 Left] Respiratory 19 18 20 Rate Blood Pressure 157/70 Blood Pressure 132/62 135/68 [Left Arm] O2 Sat by Pulse 98 96 98 Oximetry (%) 07/15/19 07/15/19 01:29 04:00 Temperature 98.4 F 98.5 F Pulse Rate 89 91 H Pulse Rate [ Left] Respiratory 17 18 Rate Blood Pressure 139/53 L 134/85 Blood Pressure [Left Arm] O2 Sat by Pulse 96 94 L Oximetry (%) GENERAL: A&Ox3 SKIN: pale, cool, clammy HEAD: Normal with no signs of trauma. EYES: Pupils equal, round and reactive to light, extraocular movements intact, sclera anicteric, conjunctiva clear. LUNGS: Breath sounds equal, clear to auscultation bilaterally. HEART: Regular rate and rhythm, S1 and S2 ABDOMEN: Soft, diffusely tender; surgical weston intact, no exudate from staple line, no surrounding erythema or fluctuance UPPER EXTREMITIES: 2+ pulses, warm, well-perfused. No cyanosis. No clubbing. No peripheral edema. LOWER EXTREMITIES: 2+ pulses, warm, well-perfused. No calf tenderness. No peripheral edema. NEUROLOGICAL: Cranial nerves II-XII intact. Normal speech. Laboratory Results - last 24 hr 07/14/19 07/14/19 17:53 17:53 WBC 4.4 RBC 4.29 Hgb 12.4 Hct 38.1 MCV 88.7 MCH 29.0 MCHC 32.7 RDW 13.3 Plt Count 349 MPV 8.3 Absolute Neuts (auto) 3.6 Neutrophils % No Result Required. Neutrophils % (Manual) 74.0 Band Neutrophils % 10.0 Lymphocytes % No Result Required. Lymphocytes % (Manual) 14.0 Monocytes % (Manual) 2 L Platelet Estimate Slt increase Sodium 136 Potassium 3.8 Chloride 101 Carbon Dioxide 27 Anion Gap 8 BUN 10.0 Creatinine 0.5 L Est GFR (CKD-EPI)AfAm 108.20 Est GFR (CKD-EPI)NonAf 93.36 Random Glucose 139 H Calcium 8.6 Magnesium 1.7 L Total Bilirubin 1.6 H AST 65 H ALT 40 Alkaline Phosphatase 61 Total Protein 6.5 Albumin 3.4 ASSESSMENT/PLAN 79 year-old female with a PMH significant for HTN, HLD and depression. 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 Post-op course was uneventful, discharged on 07/10/19. Patient presented in the ED (POD # 7) for evaluation of abdominal pain and vomiting x 24 hours. Post op ileus with partial obstruction at anastamosis --Tm 100.4, no leukocytosis, hemodynamically stable --received one dose Zosyn in ED, will observe off antibiotics --bolus NS x 1L --FUA ordered --no repeat CT scan for 5 days per surgery Fever --Tm 100.4 --ph[place] culture --CXR FEN Fluids: NS@125mL/hr Electrolytes: replete as indicated Nutrition: keep NPO for 24 hours, clears tomorrow; if tolerates stay on clears x 2 weeks DVT prophylaxis: subq lovenox Physical therapy Dispo: continues to require inpatient care. Full code. Visit type - Emergency Visit Emergency Visit: Yes ED Registration Date: 07/14/19 Care time: The patient presented to the Emergency Department on the above date and was hospitalized for further evaluation of their emergent condition. - New Patient This patient is new to me today: Yes Date on this admission: 07/15/19 - Critical Care Critical Care patient: No
[2019-07-15 08:42] LABS: BASO % 0.1 % (0-2.0); HEMATOCRIT 34.7 % (32.4-45.2); MCH 30.6 pg (25.7-33.7); MCHC 34.6 g/dl (32.0-36.0); MEAN CELL VOLUME 88.4 fl (80-96); MEAN PLT VOLUME 8.8 fl (7.5-11.1); MONO % 5.9 % (3.8-10.2); PLATELET COUNT 324 K/MM3 (134-434); RBC 3.92 M/mm3 (3.60-5.2); RDW 13.6 % (11.6-15.6); WHITE BLOOD COUNT 7.7 K/mm3 (4.0-10.8)
[2019-07-15] MEDS ORDERED: SODIUM CHLORIDE 1,000 ML IV STA (08:56)
[2019-07-15 09:03] LABS: ALBUMIN 2.6 g/dl (3.4-5.0); BILIRUBIN,TOTAL 1.3 mg/dl (0.2-1); CALCIUM 7.9 mg/dl (8.5-10); CREATININE 0.6 mg/dl (0.55-1.3); POTASSIUM 3.5 mmol/L (3.5-5.1); TOT PROT 5.1 g/dl (6.4-8.2)
--- NOTE | 2019-07-15 09:33 | PN ---
Progress Note (short form) - Note Progress Note: surgery 07/14/19 pt returned to ER for abd pain and vomiting. Ct with oral contrast reviewed. official report pending. no obvious transition seen but expected swelling at anastamosis noted. air passes through anastamosis with air distal. contrast at the anastamosis. expected fluid in abdomen on pod#7. no free air. labs unremarkable. Plan- clinically ileus. agree with admission. agree with ngt. likely overate yesterday with partially obstructed the anastamosis. Clinically no leak or mechnical sbo. 07/15/19 Pt seen and examined. feels much better. ngt with no output. flatus and bm. Daughter states pt "ate like she never saw food before" on Friday. Official ct as above with small 5mm drop of free air. abd- soft, mild distension,incison clean, expected right sided tenderness Plan- clinically this is an ileus with partial obstruction at anastamosis from over eating. will remove ngt. keep npo. recommend stop abx. kub to follow migration of contrast which I expect to be in the left colon. Ct findings are expected post surgical changes: 1) fluid along right gutter and pelvis and around liver is expected and clinically not an abscess. Perc drainage would more likely cause an infection than treat one. would hold abx. 2) drop of free air secondary recent surgery. clinically no leak 3) thickening of small bowel and mesentery secondary to anastamosis and closing mesenteric defect. this is expected. contrast and air noted in proximal transverse colon. Pt is clinically not toxic. recommend pt and chest pt. low grade fever likely atelectasis. follow cultures.
[2019-07-15] MEDS: ATENOLOL 50 MG TABLET (FP) PO SCH (10:38)
--- NOTE | 2019-07-15 11:15 | EKG ---
Test Reason : Blood Pressure : / mmHG Vent. Rate : 078 BPM Atrial Rate : 078 BPM P-R Int : 150 ms QRS Dur : 090 ms QT Int : 374 ms P-R-T Axes : 034 -14 020 degrees QTc Int : 426 ms NORMAL SINUS RHYTHM NONSPECIFIC ST ABNORMALITY ABNORMAL ECG NO PREVIOUS ECGS AVAILABLE Confirmed by STAR STRINGER MD ([id number]) on 07/15/2019 11:14:27 AM Referred By: MD COELLO Confirmed By:STAR STRINGER MD
[2019-07-15] MEDS: CITALOPRAM HYDROBROMIDE 20 MG TABLET (FP) PO SCH (21:14)
[2019-07-15] MEDS: ATORVASTATIN CA 10 MG TABLET (FP) PO SCH (21:14)
[2019-07-15] MEDS ORDERED: PATIENT'S OWN MEDICATION (NON-FORMULARY) (Simvastatin 20 MG) PO SCH (22:00)
[2019-07-15] MEDS ORDERED: PATIENT'S OWN MEDICATION (NON-FORMULARY) (Atenolol [Tenormin -] 100 MG) PO SCH (22:00)
[2019-07-16] MEDS: ACETAMINOPHEN 1000 MG/100 ML VIAL (NON FORMULARY) IVPB PRN ×3 (06:27→21:43)
[2019-07-16 07:54] LABS: ALBUMIN 2.3 g/dl (3.4-5.0); BILIRUBIN,TOTAL 0.9 mg/dl (0.2-1); CREATININE 0.6 mg/dl (0.55-1.3); POTASSIUM 3.7 mmol/L (3.5-5.1); TOT PROT 5.3 g/dl (6.4-8.2)
[2019-07-16 07:59] LABS: BASO % 0.2 % (0-2.0); EOS % 0.2 % (0-4.5); HEMATOCRIT 34.4 % (32.4-45.2); HEMOGLOBIN 11.4 GM/dl (10.7-15.3); LYMPH % 7.3 % (8-40); MCH 29.2 pg (25.7-33.7); MCHC 33.1 g/dl (32.0-36.0); MEAN CELL VOLUME 88.1 fl (80-96); MEAN PLT VOLUME 8.7 fl (7.5-11.1); MONO % 5.4 % (3.8-10.2); NEUT % 86.9 % (42.8-82.8); PLATELET COUNT 378 K/MM3 (134-434); RDW 13.7 % (11.6-15.6); WHITE BLOOD COUNT 9.3 K/mm3 (4.0-10.8)
[2019-07-16] MEDS: ATENOLOL 50 MG TABLET (FP) PO SCH (09:33)
--- NOTE | 2019-07-16 09:37 | PN ---
Physical Exam: SUBJECTIVE: Patient seen and examined OBJECTIVE: Vital Signs Period Temp Pulse Resp BP Sys/Pichardo Pulse Ox Last 24 Hr 98.4 F-99.6 F 75-88 18-19 111-150/40-82 93-96 GENERAL: A&Ox3 HEAD: Normal with no signs of trauma. EYES: Pupils equal, round and reactive to light, extraocular movements intact, sclera anicteric, conjunctiva clear. LUNGS: Breath sounds equal, clear to auscultation bilaterally. HEART: Regular rate and rhythm, S1 and S2 ABDOMEN: Soft, diffusely tender; surgical weston intact, no exudate from staple line, no surrounding erythema or fluctuance UPPER EXTREMITIES: 2+ pulses, warm, well-perfused. No cyanosis. No clubbing. No peripheral edema. LOWER EXTREMITIES: 2+ pulses, warm, well-perfused. No calf tenderness. No peripheral edema. NEUROLOGICAL: Cranial nerves II-XII intact. Normal speech. Laboratory Results - last 24 hr 07/16/19 07/16/19 07:00 07:00 WBC 9.3 RBC 3.90 Hgb 11.4 Hct 34.4 MCV 88.1 MCH 29.2 MCHC 33.1 RDW 13.7 Plt Count 378 MPV 8.7 Absolute Neuts (auto) 8.1 Neutrophils % 86.9 H Lymphocytes % 7.3 L Monocytes % 5.4 Eosinophils % 0.2 Basophils % 0.2 Sodium 139 Potassium 3.7 Chloride 111 H Carbon Dioxide 21 Anion Gap 7 L BUN 16.0 Creatinine 0.6 Est GFR (CKD-EPI)AfAm 101.90 Est GFR (CKD-EPI)NonAf 87.92 Random Glucose 97 Calcium 8.0 L Magnesium 2.0 Total Bilirubin 0.9 AST 13 L ALT 22 Alkaline Phosphatase 61 Total Protein 5.3 L Albumin 2.3 L Active Medications Generic Name Dose Route Start Last Admin Trade Name Freq PRN Reason Stop Dose Admin Acetaminophen 1,000 mg 07/15/19 01:00 07/16/19 06:27 Ofirmev Injection - IVPB 1,000 mg Q6H PRN Administration PAIN LEVEL 1-5 Atenolol 100 mg 07/15/19 10:00 07/16/19 09:33 Tenormin - PO 100 mg DAILY ISAC Administration Atorvastatin Calcium 10 mg 07/15/19 22:00 07/15/19 21:14 Lipitor - PO 10 mg HS ISAC Administration Citalopram Hydrobromide 20 mg 07/15/19 22:00 07/15/19 21:14 Celexa - PO 20 mg HS ISAC Administration Sodium Chloride 1,000 mls @ 125 mls/hr 07/14/19 18:30 07/15/19 19:35 Normal Saline - IV 125 mls/hr ASDIR ISAC Administration ASSESSMENT/PLAN 79 year-old female with a PMH significant for HTN, HLD and depression. 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 Post-op course was uneventful, discharged on 07/10/19. Patient presented in the ED (POD # 7) for evaluation of abdominal pain and vomiting x 24 hours. Post op ileus with partial obstruction at anastamosis --afebrile, no leukocytosis, hemodynamically stable --observe off antibiotics --07/16 FUA: possible SBO; repeat FUA today --no repeat CT scan for 5 days per surgery FEN Fluids: PO intake adequate Electrolytes: replete as indicated Nutrition: clears DVT prophylaxis: subq lovenox Physical therapy Dispo: To stay on clears x 2 weeks when discharged. Full code. Visit type - Emergency Visit Emergency Visit: Yes ED Registration Date: 07/14/19 Care time: The patient presented to the Emergency Department on the above date and was hospitalized for further evaluation of their emergent condition. - New Patient This patient is new to me today: No - Critical Care Critical Care patient: No
--- NOTE | 2019-07-16 18:04 | PN ---
Progress Note (short form) - Note Progress Note: surgery pt started on clear liquids this am and tolerating. flatus and liquid stool. afebrile abd- soft, mild distension, nt, incision clean Laboratory Tests 07/15/19 07/16/19 06:50 07:00 WBC 7.7 9.3 Hgb 12.0 A/P post op ileus/overeating- resolving. advance to full liquids. possible d/c in 24 to 48 hours if tolerates. kub reviewed.
[2019-07-16] MEDS: ATORVASTATIN CA 10 MG TABLET (FP) PO SCH (21:42)
[2019-07-16] MEDS: CITALOPRAM HYDROBROMIDE 20 MG TABLET (FP) PO SCH (21:42)
[2019-07-17] MEDS: ACETAMINOPHEN 1000 MG/100 ML VIAL (NON FORMULARY) IVPB PRN ×2 (03:20→23:18)
[2019-07-17 08:42] LABS: BASO % 0.1 % (0-2.0); EOS % 0.2 % (0-4.5); HEMATOCRIT 34.8 % (32.4-45.2); HEMOGLOBIN 11.6 GM/dl (10.7-15.3); MCH 29.3 pg (25.7-33.7); MCHC 33.3 g/dl (32.0-36.0); MEAN CELL VOLUME 87.8 fl (80-96); MEAN PLT VOLUME 8.5 fl (7.5-11.1); MONO % 8.1 % (3.8-10.2); NEUT % 83.6 % (42.8-82.8); PLATELET COUNT 442 K/MM3 (134-434); RBC 3.96 M/mm3 (3.60-5.2); RDW 13.9 % (11.6-15.6); WHITE BLOOD COUNT 10.9 K/mm3 (4.0-10.8)
--- NOTE | 2019-07-17 08:53 | PN ---
Physical Exam: SUBJECTIVE: Patient seen and examined at bedside. Reports vomiting x1, last night and this morning, states still with mild abdominal pain.,. denies cp, sob , palpitations. OBJECTIVE: Vital Signs Period Temp Pulse Resp BP Sys/Pichardo Pulse Ox Last 24 Hr 98.1 F-99.4 F 70-76 18-19 133-160/49-67 94-97 GENERAL: The patient is awake, alert, and fully oriented, in no acute distress. HEAD: Normal with no signs of trauma. EYES: PERRL, extraocular movements intact, sclera anicteric, conjunctiva clear. No ptosis. ENT: Ears normal, nares patent, oropharynx clear without exudates, moist mucous membranes. NECK: Trachea midline, full range of motion, supple. LUNGS: Breath sounds equal, clear to auscultation bilaterally, no wheezes, no crackles, no accessory muscle use. HEART: Regular rate and rhythm, S1, S2 without murmur, rub or gallop. ABDOMEN: Soft, mild tenderness - Rt side of the abdomen., abdominal weston stables dry and intact, hypoactive bowel sounds non-distended,no hepatosplenomegaly, no masses. EXTREMITIES: 2+ pulses, warm, well-perfused, no edema. NEUROLOGICAL: Cranial nerves II through XII grossly intact. Normal speech, gait not observed. PSYCH: Normal mood, normal affect. SKIN: Warm, dry, normal turgor, no rashes or lesions noted Active Medications Generic Name Dose Route Start Last Admin Trade Name Freq PRN Reason Stop Dose Admin Acetaminophen 1,000 mg 07/16/19 17:29 07/17/19 03:20 Ofirmev Injection - IVPB 1,000 mg Q6H PRN Administration PAIN LEVEL 1-5 Atenolol 100 mg 07/15/19 10:00 07/16/19 09:33 Tenormin - PO 100 mg DAILY ISAC Administration Atorvastatin Calcium 10 mg 07/15/19 22:00 07/16/19 21:42 Lipitor - PO 10 mg HS ISAC Administration Citalopram Hydrobromide 20 mg 07/15/19 22:00 07/16/19 21:42 Celexa - PO 20 mg HS ISAC Administration ASSESSMENT/PLAN: 79 year-old female with a PMH significant for HTN, HLD and depression. 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 Post-op course was uneventful, discharged on 07/10/19. Patient presented in the ED (POD # 7) for evaluation of abdominal pain and vomiting x 24 hours. *Post op ileus with partial obstruction at anastamosis -afebrile, leukocytosis today -BC negative - urine culture pending - asymptomatic -observe off antibiotics -07/16 FUA: possible SBO -no repeat CT scan for 5 days per surgery -repeat FUA distal sbo -sx following, rec clears * HTN - will resume on Atenolol * HDL -on Statin FEN Fluids: PO intake adequate Electrolytes: replete as indicated Nutrition: clear liquid DVT prophylaxis: subq Lovenox Physical therapy Dispo: possible d/c in 24 to 48 hours if diet tolerates. Visit type - Emergency Visit Emergency Visit: Yes ED Registration Date: 07/14/19 Care time: The patient presented to the Emergency Department on the above date and was hospitalized for further evaluation of their emergent condition. - New Patient This patient is new to me today: Yes Date on this admission: 07/17/19 - Critical Care Critical Care patient: No
[2019-07-17 09:03] LABS: ALBUMIN 2.3 g/dl (3.4-5.0); BILIRUBIN,TOTAL 1.1 mg/dl (0.2-1); CALCIUM 8.1 mg/dl (8.5-10); CREATININE 0.4 mg/dl (0.55-1.3); MAGNESIUM 1.9 mg/dL (1.8-2.4); POTASSIUM 3.5 mmol/L (3.5-5.1); TOT PROT 5.5 g/dl (6.4-8.2)
[2019-07-17] MEDS: ATENOLOL 50 MG TABLET (FP) PO SCH (09:52)
[2019-07-17] MEDS: ENOXAPARIN NA (PORCINE) 40 MG/0.4 ML DISP.SYRIN SQ SCH (10:00)
--- NOTE | 2019-07-17 14:08 | PN ---
Progress Note (short form) - Note Progress Note: surgery pt vomited last night and this am on full liquids. still with flatus and bm. feels well now. afebrile abd- soft, mild distension, nt, incision clean A/P post op ileus/overeating- likely anastamotic swelling causing functional psbo. cont limited liquids. will restart ivf. ability to tolerate liquids should improved in time. No benefit to further x-ray imaging.
[2019-07-17] MEDS: D5-1/2NS+10 MEQ KCL - 10 MEQ/1,000 ML INFUS.BAG IV SCH (15:11)
[2019-07-17] MEDS: CITALOPRAM HYDROBROMIDE 20 MG TABLET (FP) PO SCH (21:31)
[2019-07-17] MEDS: ATORVASTATIN CA 10 MG TABLET (FP) PO SCH (21:31)
--- NOTE | 2019-07-18 07:41 | PN ---
Progress Note (short form) - Note Progress Note: surgery pt still feels well. no further vomiting. limited intake though. remains with flatus. afebrile abd- soft, mild distension, nt, incision clean A/P post op ileus/overeating- likely anastamotic swelling causing functional psbo. cont limited liquids. cont ivf. ability to tolerate liquids should improved in time. No benefit to further x-ray imaging. might attempt increase intake tomorrow
[2019-07-18 08:20] LABS: HEMATOCRIT 34.7 % (32.4-45.2); HEMOGLOBIN 11.6 GM/dl (10.7-15.3); MCH 29.3 pg (25.7-33.7); MCHC 33.3 g/dl (32.0-36.0); MEAN PLT VOLUME 8.4 fl (7.5-11.1); PLATELET COUNT 441 K/MM3 (134-434); RBC 3.94 M/mm3 (3.60-5.2); RDW 14.1 % (11.6-15.6); WHITE BLOOD COUNT 10.2 K/mm3 (4.0-10.8)
[2019-07-18] MEDS: ACETAMINOPHEN 1000 MG/100 ML VIAL (NON FORMULARY) IVPB PRN (09:05)
--- NOTE | 2019-07-18 09:32 | PN ---
Physical Exam: SUBJECTIVE: Patient seen and examined, pt still c/o lower abd pain, tolerating clears. no reported vomiting surgery following. OBJECTIVE: Vital Signs Period Temp Pulse Resp BP Sys/Pichardo Pulse Ox Last 24 Hr 98.1 F-98.4 F 67-77 16- 153-169/61-82 92-97 GENERAL: The patient is awake, alert, and fully oriented, in no acute distress. HEAD: Normal with no signs of trauma. EYES: PERRL, extraocular movements intact, sclera anicteric, conjunctiva clear. No ptosis. ENT: Ears normal, nares patent, oropharynx clear without exudates, moist mucous membranes. NECK: Trachea midline, full range of motion, supple. LUNGS: Breath sounds equal, clear to auscultation bilaterally, no wheezes, no crackles, no accessory muscle use. HEART: Regular rate and rhythm, S1, S2 without murmur, rub or gallop. ABDOMEN: Soft, nontender, nondistended, normoactive bowel sounds, no guarding, no rebound, no hepatosplenomegaly, no masses. EXTREMITIES: 2+ pulses, warm, well-perfused, no edema. NEUROLOGICAL: Cranial nerves II through XII grossly intact. Normal speech, gait not observed. PSYCH: Normal mood, normal affect. SKIN: Warm, dry, normal turgor, no rashes or lesions noted Laboratory Results - last 24 hr 07/18/19 06:00 WBC 10.2 RBC 3.94 Hgb 11.6 Hct 34.7 MCV 88.0 MCH 29.3 MCHC 33.3 RDW 14.1 Plt Count 441 H MPV 8.4 Absolute Neuts (auto) 8.7 Neutrophils % No Result Required. Neutrophils % (Manual) 79.0 Lymphocytes % No Result Required. Lymphocytes % (Manual) 16.0 Monocytes % (Manual) 5 Active Medications Generic Name Dose Route Start Last Admin Trade Name Freq PRN Reason Stop Dose Admin Acetaminophen 1,000 mg 07/16/19 17:29 07/17/19 23:18 Ofirmev Injection - IVPB 1,000 mg Q6H PRN Administration PAIN LEVEL 1-5 Atenolol 100 mg 07/15/19 10:00 07/17/19 09:52 Tenormin - PO 100 mg DAILY ISAC Administration Atorvastatin Calcium 10 mg 07/15/19 22:00 07/17/19 21:31 Lipitor - PO 10 mg HS ISAC Administration Citalopram Hydrobromide 20 mg 07/15/19 22:00 07/17/19 21:31 Celexa - PO 20 mg HS ISAC Administration Enoxaparin Sodium 40 mg 07/17/19 10:00 07/17/19 10:00 Lovenox - SQ 40 mg DAILY ISAC Administration Potassium Chloride/Dextrose/Sod Cl 10 meq in 1,000 mls @ 100 mls/hr 07/17/19 14:15 07/17/19 15:11 D5-1/2ns+10 Meq Kcl - IV 100 mls/hr ASDIR ISAC Administration ASSESSMENT/PLAN: 79 year-old female with a PMH significant for HTN, HLD and depression. 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 Post-op course was uneventful, discharged on 07/10/19. Patient presented in the ED (POD # 7) for evaluation of abdominal pain and vomiting x 24 hours. *Post op ileus with partial obstruction at anastamosis -afebrile, leukocytosis today -BC negative - urine culture pending - asymptomatic -observe off antibiotics -07/16 FUA: possible SBO -no repeat CT scan for 5 days per surgery -repeat FUA distal sbo -sx following, rec clears -no further xray recommended * HTN - will resume on Atenolol * HDL -on Statin FEN Fluids: PO intake adequate Electrolytes: replete as indicated Nutrition: clear liquid DVT prophylaxis: subq Lovenox Physical therapy Dispo: possible d/c in 24 to 48 hours if diet tolerates. Visit type - Emergency Visit Emergency Visit: Yes ED Registration Date: 07/14/19 Care time: The patient presented to the Emergency Department on the above date and was hospitalized for further evaluation of their emergent condition. - New Patient This patient is new to me today: Yes Date on this admission: 07/18/19 - Critical Care Critical Care patient: No
[2019-07-18] MEDS: ENOXAPARIN NA (PORCINE) 40 MG/0.4 ML DISP.SYRIN SQ SCH (09:44)
[2019-07-18] MEDS: ATENOLOL 50 MG TABLET (FP) PO SCH (09:44)
[2019-07-18] MEDS: D5-1/2NS+10 MEQ KCL - 10 MEQ/1,000 ML INFUS.BAG IV SCH (17:05)
[2019-07-18 17:31] LABS: ALBUMIN 2.4 g/dl (3.4-5.0); BILIRUBIN,TOTAL 0.8 mg/dl (0.2-1); CALCIUM 8.1 mg/dl (8.5-10); CREATININE 0.5 mg/dl (0.55-1.3); POTASSIUM 3.9 mmol/L (3.5-5.1); TOT PROT 5.8 g/dl (6.4-8.2)
[2019-07-18] MEDS ORDERED: ACETAMINOPHEN 325 MG TABLET (FP) ONE (20:26)
[2019-07-18] MEDS: ATORVASTATIN CA 10 MG TABLET (FP) PO SCH (21:40)
[2019-07-18] MEDS: CITALOPRAM HYDROBROMIDE 20 MG TABLET (FP) PO SCH (21:40)
[2019-07-18] MEDS ORDERED: ACETAMINOPHEN 1000 MG/100 ML VIAL (NON FORMULARY) IVPB ONE (23:45)
[2019-07-19 07:53] LABS: BASO % 0.1 % (0-2.0); EOS % 0.6 % (0-4.5); HEMATOCRIT 34.7 % (32.4-45.2); HEMOGLOBIN 11.7 GM/dl (10.7-15.3); LYMPH % 9.2 % (8-40); MCH 29.2 pg (25.7-33.7); MCHC 33.8 g/dl (32.0-36.0); MEAN CELL VOLUME 86.4 fl (80-96); NEUT % 82.1 % (42.8-82.8); PLATELET COUNT 486 K/MM3 (134-434); RBC 4.02 M/mm3 (3.60-5.2); RDW 13.7 % (11.6-15.6); WHITE BLOOD COUNT 11.8 K/mm3 (4.0-10.8)
[2019-07-19 08:04] LABS: ALBUMIN 2.1 g/dl (3.4-5.0); BILIRUBIN,TOTAL 0.8 mg/dl (0.2-1); CREATININE 0.4 mg/dl (0.55-1.3); MAGNESIUM 1.6 mg/dL (1.8-2.4); POTASSIUM 3.1 mmol/L (3.5-5.1); TOT PROT 5.2 g/dl (6.4-8.2)
[2019-07-19] MEDS ORDERED: LORazepam 0.5 MG TABLET PO ONE (09:26)
[2019-07-19] MEDS ORDERED: MAGNESIUM SULF 50% (8.12 MEQ/2 ML-1 GM VIAL) IVPB ONE (09:42)
[2019-07-19] MEDS ORDERED: FUROSEMIDE 40 MG/4 ML INJECTABLE VIAL IVPUSH ONE (09:43)
--- NOTE | 2019-07-19 09:59 | PN ---
Physical Exam: SUBJECTIVE: Patient seen and examined at bedside. Ambulating around room, back and forth to bathroom independently. States feels terrible, still has abdominal pain "all the time." Having BMs, +flatus, but passing stool is painful. OBJECTIVE: Vital Signs Period Temp Pulse Resp BP Sys/Pichardo Pulse Ox Last 24 Hr 98.1 F-98.8 F 64-73 18-19 151-177/67-80 95-97 GENERAL: A&Ox3 LUNGS: Breath sounds equal, clear to auscultation bilaterally. HEART: Regular rate and rhythm, S1 and S2 ABDOMEN: Soft, RLQ, RUQ tenderness; surgical weston intact, no exudate from staple line, no surrounding erythema or fluctuance UPPER EXTREMITIES: 2+ pulses, warm, well-perfused. No cyanosis. No clubbing. No peripheral edema. LOWER EXTREMITIES: 2+ pulses, warm, well-perfused. No calf tenderness. No peripheral edema. NEUROLOGICAL: Cranial nerves II-XII intact. Normal speech. Laboratory Results - last 24 hr 07/18/19 07/19/19 07/19/19 17:00 07:05 07:05 WBC 11.8 H RBC 4.02 Hgb 11.7 Hct 34.7 MCV 86.4 MCH 29.2 MCHC 33.8 RDW 13.7 Plt Count 486 H MPV 8.0 Absolute Neuts (auto) 9.7 Neutrophils % 82.1 Lymphocytes % 9.2 Monocytes % 8.0 Eosinophils % 0.6 Basophils % 0.1 Sodium 140 137 Potassium 3.9 3.1 L Chloride 103 102 Carbon Dioxide 28 28 Anion Gap 9 7 L BUN 9.0 7.0 Creatinine 0.5 L 0.4 L Est GFR (CKD-EPI)AfAm 108.20 116.44 Est GFR (CKD-EPI)NonAf 93.36 100.47 Random Glucose 131 H 129 H Calcium 8.1 L 8.0 L Magnesium 1.6 L Total Bilirubin 0.8 0.8 AST 32 44 H ALT 31 38 Alkaline Phosphatase 116 D 124 H Total Protein 5.8 L 5.2 L Albumin 2.4 L 2.1 L Active Medications Generic Name Dose Route Start Last Admin Trade Name Freq PRN Reason Stop Dose Admin Atenolol 100 mg 07/15/19 10:00 07/18/19 09:44 Tenormin - PO 100 mg DAILY ISAC Administration Atorvastatin Calcium 10 mg 07/15/19 22:00 07/18/19 21:40 Lipitor - PO 10 mg HS ISAC Administration Citalopram Hydrobromide 20 mg 07/15/19 22:00 07/18/19 21:40 Celexa - PO 20 mg HS ISAC Administration Enoxaparin Sodium 40 mg 07/17/19 10:00 07/18/19 09:44 Lovenox - SQ 40 mg DAILY ISAC Administration Furosemide 20 mg 07/19/19 09:43 Lasix Injection - IVPUSH 07/19/19 09:44 ONCE ONE Magnesium Sulfate 2 gm 07/19/19 09:42 Magnesium Sulfate IVPB 07/19/19 09:43 ONCE ONE Potassium Chloride 40 meq 07/19/19 09:45 K-Dur - PO 07/19/19 15:46 Q6H ISAC ASSESSMENT/PLAN 79 year-old female with a PMH significant for HTN, HLD and depression. 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 Post-op course was uneventful, discharged on 07/10/19. Patient presented in the ED (POD # 7) for evaluation of abdominal pain and vomiting x 24 hours. Post op ileus with partial obstruction at anastamosis --POD #12 --serial imaging has shown ileus/distal SBO (last imaging 07/16) but having BMs and passing flatus --concern for leukocytosis today with RLQ, RUQ tenderness on exam --defer antibiotics for now, if worsens will get CT scan with contrast Hypertension --BP elevated, has been on IV fluids --d/c IV fluids, lasix IVP 20mg x 1 --continue atenolol Hyperlipidemia --continue Lipitor FEN Fluids: PO intake adequate Electrolytes: replete as indicated Nutrition: advance to full liquids DVT prophylaxis: subq lovenox Physical therapy Dispo: continues to require inpatient care. Full code. Visit type - Emergency Visit Emergency Visit: Yes ED Registration Date: 07/14/19 Care time: The patient presented to the Emergency Department on the above date and was hospitalized for further evaluation of their emergent condition. - New Patient This patient is new to me today: No - Critical Care Critical Care patient: No
[2019-07-19] MEDS: ENOXAPARIN NA (PORCINE) 40 MG/0.4 ML DISP.SYRIN SQ SCH (10:05)
[2019-07-19] MEDS: ATENOLOL 50 MG TABLET (FP) PO SCH (10:10)
[2019-07-19] MEDS: POTASSIUM CHLORIDE TABS 20 MEQ TABLET.ER (FP) PO SCH ×2 (11:00→16:15)
[2019-07-19 13:53] LABS: EPITHELIAL CELLS FEW /hpf
--- NOTE | 2019-07-19 14:59 | PN ---
Progress Note (short form) - Note Progress Note: surgery pt had about 600ml liquids yesterday. remains with flatus and bm but complains of burning pain. afebrile. no further vomiting Plan- cont liquids. will try to increase po intake. if vomits would re-scan.
[2019-07-19] MEDS: CITALOPRAM HYDROBROMIDE 20 MG TABLET (FP) PO SCH (21:31)
[2019-07-19] MEDS: LORazepam 0.5 MG TABLET PO SCH (21:31)
[2019-07-19] MEDS: ATORVASTATIN CA 10 MG TABLET (FP) PO SCH (21:31)
[2019-07-20] MEDS: ACETAMINOPHEN 1000 MG/100 ML VIAL (NON FORMULARY) IVPB PRN ×4 (00:51→23:38)
[2019-07-20 08:15] LABS: BASO % 0.1 % (0-2.0); EOS % 0.5 % (0-4.5); HEMATOCRIT 34.5 % (32.4-45.2); HEMOGLOBIN 11.6 GM/dl (10.7-15.3); LYMPH % 11.5 % (8-40); MCH 29.1 pg (25.7-33.7); MCHC 33.4 g/dl (32.0-36.0); MEAN CELL VOLUME 86.9 fl (80-96); MONO % 6.3 % (3.8-10.2); NEUT % 81.6 % (42.8-82.8); PLATELET COUNT 544 K/MM3 (134-434); RBC 3.97 M/mm3 (3.60-5.2); WHITE BLOOD COUNT 12.7 K/mm3 (4.0-10.8)
[2019-07-20 08:28] LABS: ALBUMIN 2.2 g/dl (3.4-5.0); CREATININE 0.5 mg/dl (0.55-1.3); MAGNESIUM 2.1 mg/dL (1.8-2.4); POTASSIUM 3.6 mmol/L (3.5-5.1); TOT PROT 5.2 g/dl (6.4-8.2)
--- NOTE | 2019-07-20 09:08 | PN ---
Physical Exam: Patient will be transferred to the surgical service today. Discussed with Dr. Tilley. The hospitalist service will sign off at this time. Thank you for giving us the opportunity to care for your patient. Visit type - Emergency Visit Emergency Visit: Yes ED Registration Date: 07/14/19 Care time: The patient presented to the Emergency Department on the above date and was hospitalized for further evaluation of their emergent condition. - New Patient This patient is new to me today: No - Critical Care Critical Care patient: No
[2019-07-20] MEDS: ATENOLOL 50 MG TABLET (FP) PO SCH (09:28)
[2019-07-20] MEDS: LORazepam 0.5 MG TABLET PO SCH ×2 (09:28→21:54)
[2019-07-20] MEDS: ENOXAPARIN NA (PORCINE) 40 MG/0.4 ML DISP.SYRIN SQ SCH (09:29)
--- NOTE | 2019-07-20 09:29 | PN ---
Progress Note (short form) - Note Progress Note: surgery please see hand written note as computers werent working earlier. hold ct today. pt clinically improving. if wbc continues to rise would consider scan tomorrow. check cxr and venous doppler.
[2019-07-20] MEDS ORDERED: PIPERACILLIN/TAZOB 3.375 GM 3.375 GM in DEXTROSE 5%-WATER - 50 ML IVPB SCH (10:00)
[2019-07-20] MEDS: ATORVASTATIN CA 10 MG TABLET (FP) PO SCH (21:54)
[2019-07-20] MEDS: CITALOPRAM HYDROBROMIDE 20 MG TABLET (FP) PO SCH (21:54)
[2019-07-21 06:35] VITALS: BP 173/73; PULSE 78; TEMP 99.3
[2019-07-21] MEDS: ATENOLOL 50 MG TABLET (FP) PO SCH (10:40)
[2019-07-21] MEDS: ENOXAPARIN NA (PORCINE) 40 MG/0.4 ML DISP.SYRIN SQ SCH (10:40)
[2019-07-21] MEDS: LORazepam 0.5 MG TABLET PO SCH (10:40)
--- NOTE | 2019-07-22 14:37 | DS ---
DATE OF ADMISSION: 07/14/2019 DATE OF DISCHARGE: 07/21/2019 ADMITTING DIAGNOSIS: Ileus. DISCHARGE DIAGNOSIS: Ileus. BRIEF HISTORY: This is a 79-year-old female who was approximately 1 week out from a right hemicolectomy, had been at home, eating and doing well. Her diet was advanced, and then according to her daughter, she ate like she had never seen food before, at which point she developed abdominal pain, nausea, and vomiting, and came to the [facility]. There she had a CAT scan of the abdomen and pelvis which was suggestive of possible partial obstruction at the anastomosis. This was to be somewhat expected from postoperative edema as well as closure of the mesenteric defect, and the patient was treated conservatively. She initially had a nasogastric tube decompression. Oral contrast was then shown to clearly enter the left colon on followup x-ray. She was passing gas and having bowel movements, and she was started on a clear liquid diet and eventually advanced to a full liquid diet. She did vomit 1 time while on the diet. For the past 48 hours she has been tolerating full liquids. She continues to pass gas and have a bowel movement. At the time of her discharge, her white blood cell count was 12,000 yesterday, and this is felt to be expected in the setting of an ileus. There is low suspicion for an anastomotic leak or collection. At the time of her discharge, her abdomen is soft, nontender, with well-healed incision. Patient will go home on a liquid diet which she will stay on for at least 1 week. She will follow with Dr. Mccollum, her operative surgeon, next week. She is okay to shower, okay to walk. She will not lift anything more than 20 pounds. If she develops fever or nausea or vomiting, she will need to return to the hospital. DO SCHUYLER TAPIA/[id number]
== END 2019-07-21 15:42 | disposition home or self-care (01) | DRG 394 ==
LOC: FER 17:09 → FM/S 22:27 → UNDOADMIN 22:58
PROVIDERS: ADMIT Surgery; ATTEND Surgery
DX: K91.89 Other postprocedural complications and disorders of digestive system (principal); K56.7 Ileus, unspecified; K56.690 Other partial intestinal obstruction; I10 Essential (primary) hypertension; Z90.49 Acquired absence of other specified parts of digestive tract; Z86.010 Personal history of colon polyps; E78.5 Hyperlipidemia, unspecified; F32.9 Major depressive disorder, single episode, unspecified; E66.9 Obesity, unspecified; Z68.37 Body mass index [BMI] 37.0-37.9, adult; D72.829 Elevated white blood cell count, unspecified; Y83.8 Other surgical procedures as the cause of abnormal reaction of the patient, or of later complication, without mention of misadventure at the time of the procedure
CPT/HCPCS: 36415; 71045-TC-FY; 71046-TC-FY; 74019-TC-FY; 74177-TC; 80053; 81003; 81015; 83735; 85025; 87040; 87086; 93005; 93970-TC; 97116-GP; 97161-GP; 99285-25; J0131; J7030

== ENCOUNTER 2022-12-04 08:05 | Day surgery (SDC) | payer OTHER ==
[2022-11-26 11:53] VITALS: BMI 36.6
[2022-12-04] MEDS: PHENYLEPHRINE 2.5% OPHTH SOLN 15 ML BOTTLE ONE ×3 (08:35→08:45)
[2022-12-04] MEDS: CIPROFLOXACIN 0.3% EYE DROPS 5 ML BOTTLE ONE ×3 (08:35→08:45)
[2022-12-04] MEDS: TROPICAMIDE 1% OPHTH SOLN 15 ML BOTTLE ONE ×3 (08:35→08:45)
[2022-12-04] MEDS: CYCLOPENTOLATE 2% OPHTH SOLN 2 ML BOTTLE ONE ×3 (08:35→08:45)
[2022-12-04] MEDS ORDERED: LIDOCAINE HCL/PF 1% SDV 5ML VIAL ONE (08:36)
[2022-12-04] MEDS ORDERED: TETRACAINE 0.5% OPHTH SOLN 2 ML BOTTLE ONE (08:36)
[2022-12-04] MEDS ORDERED: BSS (NA/CA/MG/K) BALANCED SALT SOLUTION OPHTH SOLN 15 ML BOTTLE ONE (08:36)
[2022-12-04] MEDS ORDERED: CARBACHOL 0.01% INTRA-OCULAR 1.5 ML VIAL ONE (08:37)
[2022-12-04] MEDS ORDERED: NEO/POLYMYX B SULF/DEXAMETH OPHTHALMIC 5ML BOTTLE ONE (08:37)
[2022-12-04] MEDS ORDERED: MIDAZOLAM HCL 2 MG/2 ML SINGLE DOSE VIAL ONE (09:48)
[2022-12-04 10:32] VITALS: RESP 20; TEMP 97.7
[2022-12-04 11:03] VITALS: BP 110/60; PULSE 64
== END 2022-12-04 11:05 | disposition home or self-care (01) ==
LOC: FASU 08:05
PROVIDERS: ATTEND Ophthalmology
PROC: 08RJ3JZ Replacement of Right Lens with Synthetic Substitute, Percutaneous Approach (ICD-10-PCS; principal; 2022-12-04 09:54)
DX: H26.8 Other specified cataract (principal)
CPT/HCPCS: 66984; V2632

== ENCOUNTER 2022-12-25 06:56 | Day surgery (SDC) | payer OTHER ==
[2022-12-23 12:45] VITALS: BMI 36.6
[2022-12-25] MEDS ORDERED: LIDOCAINE HCL/PF 1% SDV 5ML VIAL ONE (07:08)
[2022-12-25] MEDS ORDERED: TRYPAN BLUE 0.5 ML DISP.SYRIN ONE (07:08)
[2022-12-25] MEDS ORDERED: LIDOCAINE 1% P/F 10 MG/ML VIAL ONE (07:08)
[2022-12-25] MEDS ORDERED: PHENYLEPHRINE/KETOROLAC 4 ML VIAL IO ONE (07:08)
[2022-12-25] MEDS ORDERED: EPINEPHrine/PF 1 MG/1 ML (1:1,000) AMPULE ONE (07:08)
[2022-12-25] MEDS ORDERED: BSS (NA/CA/MG/K) BALANCED SALT SOLUTION OPHTH SOLN 15 ML BOTTLE ONE (07:09)
[2022-12-25] MEDS ORDERED: NEO/POLYMYX B SULF/DEXAMETH OPHTHALMIC 5ML BOTTLE ONE (07:09)
[2022-12-25] MEDS ORDERED: CARBACHOL 0.01% INTRA-OCULAR 1.5 ML VIAL ONE (07:09)
[2022-12-25] MEDS ORDERED: TETRACAINE 0.5% OPHTH SOLN 2 ML BOTTLE ONE (07:09)
[2022-12-25] MEDS ORDERED: ACETYLCHOLINE 1:100 INTRA-OCUL 20 MG/2 ML KIT ONE (07:09)
[2022-12-25] MEDS: CIPROFLOXACIN 0.3% EYE DROPS 5 ML BOTTLE ONE ×3 (07:30→07:40)
[2022-12-25] MEDS: CYCLOPENTOLATE 2% OPHTH SOLN 2 ML BOTTLE ONE ×3 (07:30→07:40)
[2022-12-25] MEDS: PHENYLEPHRINE 2.5% OPTHALMIC DROP 2ML BOTTLE ONE ×3 (07:30→07:40)
[2022-12-25] MEDS: TROPICAMIDE 1% OPHTH SOLN 15 ML BOTTLE ONE ×3 (07:30→07:40)
[2022-12-25] MEDS ORDERED: MIDAZOLAM HCL 2 MG/2 ML SINGLE DOSE VIAL ONE (08:47)
[2022-12-25 09:13] VITALS: RESP 18; TEMP 97.4
[2022-12-25 09:29] VITALS: BP 120/62; PULSE 62
== END 2022-12-25 09:33 | disposition home or self-care (01) ==
LOC: FASU 06:56
PROVIDERS: ATTEND Ophthalmology
PROC: 08RK3JZ Replacement of Left Lens with Synthetic Substitute, Percutaneous Approach (ICD-10-PCS; principal; 2022-12-25 08:51)
DX: H26.8 Other specified cataract (principal)
CPT/HCPCS: 66984; V2632; J1097